=== PATIENT | male | born 2000 | race Caucasian/White ===

== ENCOUNTER 2024-04-21 02:10 | Emergency (ER) | payer OTHER ==
[~2024-04-21] VITALS: Ht 177.8 cm; Wt 79.5 kg
[2024-04-21 02:12] VITALS: TEMP 98
[2024-04-21] MEDS ORDERED: Ketorolac 15 MG/ML VIAL IM ONE (02:30)
[2024-04-21] MEDS ORDERED: Promethazine 50 MG/ML 1 ML VIAL IM ONE (02:45)
[2024-04-21 03:40] VITALS: BP 136/91
[2024-04-21] MEDS ORDERED: ROBAXIN 50500 MG/TAB PO (03:46)
[2024-04-21] MEDS ORDERED: Home HYDROcodone/Acetaminophen 5/325 MG #4 TABS/PACK PO ONE (04:00)
[2024-04-21 04:04] VITALS: PULSE 70
== END 2024-04-21 04:05 | disposition home or self-care (01) ==
LOC: COL.ER 02:10
DX: M54.6 Pain in thoracic spine (principal)
CPT/HCPCS: J1885; J2550